=== PATIENT | female | born 1980 | race African-American/Black ===

== ENCOUNTER 2018-03-24 17:11 | Emergency (ER) | payer OTHER ==
--- NOTE | 2018-03-24 20:21 | PDOC ---
Attending Attestation - Resident Resident Name: Lisandra Vines - ED Attending Attestation I have performed the following: I have examined & evaluated the patient, The case was reviewed & discussed with the resident, I agree w/resident's findings & plan - HPI HPI: 03/24/18 20:19 Healthy 37-year-old female with history of ovarian cysts with LMP about 11 days ago presents now with 3 days of constant left pelvic pain that acutely exacerbated this morning around 11 AM, presents for evaluation. Patient has had her usual left pelvic discomfort, attributed to her previous diagnosis of ovulation pain. This morning had an acute exacerbation which radiated to her low back and left leg, lasted about an hour until she took ibuprofen, then returned to baseline level but with some residual pelvic discomfort. No bleeding or discharge, no urinary complaints, no associated GI complaints. No fevers or chills. - Physicial Exam PE: 03/24/18 20:20 Vital signs normal Urine pending Well-appearing and comfortable lying in stretcher talking on her cell phone Abdomen is soft and nondistended, tender in the left pelvis without guarding, there is some referred rebound to the left pelvis. No CVA tenderness. - Medical Decision Making 03/24/18 20:21 Healthy 37-year-old female with history of ovarian cysts about midcycle presents with acute left pelvic pain this morning, now improved. Presentation seems most consistent with cyst and rupture, rule out torsion. Rule out , rule out urinary etiology. Labs, urinalysis, urine Transvaginal ultrasound Feels comfortable now, reassess and disposition accordingly 03/24/18 23:45 labs, ua completely normal. Urine preg negative. Feels well, pain essentially resolved. US shows subcm b/l ovarian cysts, known fibroid, and some fluid but no large cyst or torsion. abd benign without guarding/rebound. presentation remains most consistent with small cyst rupture v. ovulation pain (resolved). no other evidence for GI or urinary pathology. pt agrees with d/c plan, feels much better and has state manager f/u. understands return criteria.
--- NOTE | 2018-03-24 20:24 | PDOC ---
History of Present Illness - General Chief Complaint: Pain Stated Complaint: PAIN - History of Present Illness Initial Comments: Daniela Wilson is a 37yo woman with a PMH of PCOS (per the patient) with a prior ruptured cyst who presents today with severe LLQ abdominal pain since eralier today. She reports that she had been having mild LLQ pain for several days and thought it was ovulation pain. However, this afternoon she had an abrupt and severe increase in her pain to a 10/10. She reports that the pain was also present in her back and proximal LLE in addition to the abdomen. She took some ibuprofen and the pain improved to a 6/10, which was bearable. She presented to the ED for evaluation. She states that she has been having mild lower abdominal pain for months, on and off, and previously reported it to her OB. She was told that it was ovulation pain, although the pain occurred throughout the month. She does report a history of irregular menstrual periods. Her most recent period ended about 10 days ago. Other than the abdominal pain this afternoon, Ms Wilson denies any associated symptoms. She has not had any nausea, vomiting, diarrhea, constipation, urinary symptoms, or vaginal discharge. She did have a yeast infection last week but reports that it has cleared up at this point. She has not had any fever, chills , or s/s of infection. Past History - Past Medical History Allergies/Adverse Reactions: Allergies Allergy/AdvReac Type Severity Reaction Status Date / Time No Known Allergies Allergy Verified 03/24/18 17:28 COPD: No - Surgical History Abdominal Surgery: Yes (HERNIA) - Suicide/Smoking/Psychosocial Hx Smoking History: Never smoked Review of Systems - Review of Systems Comments:: General: No fevers, no chills, no weight or appetite change, no malaise HEENT: No changes in vision, no changes in hearing, no congestion, no sore throat CV: No chest pain, no palpitations, no LE edema Pulm: No SOB, no cough, no wheezing GI: No nausea or vomiting, no change in bowel habits, no melena. See HPI : No frequency, no urgency, no dysuria Musc: No back pain, no joint swelling, no recent injury Skin: No rash, no lesions, no erythema Endo: No excessive thirst, no heat/cold intolerance Heme: No unusual bruising or bleeding, no swollen glands Neuro: No syncope, no numbness/tingling, no focal weakness Vasc: No claudication Psych: No recent change in mood, no SI or HI *Physical Exam - Vital Signs Last Vital Signs Temp Pulse Resp BP Pulse Ox 98 F 76 18 96/63 99 03/24/18 17:25 03/24/18 17:25 03/24/18 17:25 03/24/18 17:25 03/24/18 17:25 - Physical Exam Comments: General: Comfortable, no acute distress HEENT: PERRL, EOMI, MMM, voice normal, normal neck ROM, no LAD Cards: RRR, no murmur appreciated Pulm: Comfortable on room air, clear to auscultation bilaterally Abd: Soft, non-distended. TTP in LLQ. : No CVA tenderness Ext: Atraumatic. No LE edema. ROM intact. Strength 5/5 and equal bilaterally Vasc: Extremities WWP. Palpable radial and pedal pulses bilaterally Neuro: A&Ox3, CN grossly intact, normal speech, motor/sensory grossly intact and symmetric Psych: Mood appropriate to situation ED Treatment Course - LABORATORY CBC & Chemistry Diagram: 03/24/18 21:10 03/24/18 21:10 Medical Decision Making - Medical Decision Making Daniela Wilson is a 37yo woman with a PMH of PCOS and ruptured ovarian cyst who presents with acute onset of severe LLQ pain following several days of mild LLQ pain. - Symptoms most likely due to ruptured cyst. Ms Wilson has a history of ruptured cyst, and reports that this is similar - Unlikely to be an ectopic ; will check urine to r/o - UA to r/o UTI as cause of abdominal pain - CBC, CMP to evaluate for infection or intraabdominal abnormality, though given history and physical this is most likely related to pathology - Will order pelvic US - either or non- - once urine is returned 03/24/18 21:36 - CBC, chemistry, and UA normal. Urine preg negative - Pelvic US ordered to evaluate for cyst or fluid - Discussed with patient. If US confirms ovarian cyst or is consistent with recently ruptured cyst and if no other abnormalities are found, will discharge home. Ms Wilson agrees with this plan, pending results of US. Patient endorsed to Dr Wallis for additional management. Discussed with Dr Cortes. *DC/Admit/Observation/Transfer Diagnosis at time of Disposition: Ruptured ovarian cyst - Referrals Referrals: ON STAFF,NOT [Primary Care Provider] - Pushpa Marion MD [Staff Physician] - - Patient Instructions Printed Discharge Instructions: DI for Ovarian Cyst Additional Instructions: Discharge Instructions: - You were seen in the ED for left lower abdominal pain - You had normal blood tests and urine test, but an ultrasound showed that you likely had a ruptured ovarian cyst - Continue to use ibuprofen (Alive, Motrin) or acetaminophen (Tylenol) as directed for pain. Remember to take ibuprofen with food to prevent stomach upset , and do not take more than 4000mg of acetaminophen per day. If needed for pain control, you may alternate between acetaminophen and ibuprofen every 3-4 hours. - Consider using a heating pad to relieve pain - Follow up with gynecology within the next week. You have been referred to Dr Marion if you do not have a construction field engineer that you see regularly. - Seek immediate medical care if you have severe worsening of your abdominal pain, especially if you also feel lightheaded/dizzy, have fever to 101F, have copious vaginal bleeding, or you have nausea and vomiting that prevent you from eating or drinking. - Post Discharge Activity
[2018-03-24 21:08] LABS: URINE APPEARANCE SLCLOUDY; URINE BILIRUBIN NEGATIVE (<2.0 mg/dL); URINE COLOR YELLOW; URINE GLUCOSE (UA) NEGATIVE (NEGATIVE); URINE KETONE NEGATIVE (NEGATIVE); URINE LEUK ESTERASE NEGATIVE (NEGATIVE); URINE NITRITE NEGATIVE (NEGATIVE); URINE PROTEIN NEGATIVE (NEGATIVE); URINE UROBILINOGEN NEGATIVE mg/dL (0.2-1.0)
[2018-03-24 21:10] LABS: HCG,QUALITATIVE URINE Negative
[2018-03-24 21:22] LABS: BASO % 1.4 % (0-2.0); EOS % 1.3 % (0-4.5); HEMATOCRIT 37.8 % (32.4-45.2); HEMOGLOBIN 12.8 GM/dL (10.7-15.3); LYMPH % 44.2 % (8-40); MCH 30.4 pg (25.7-33.7); MCHC 33.7 g/dl (32.0-36.0); MEAN CELL VOLUME 90.3 fl (80-96); MONO % 5.9 % (3.8-10.2); NEUT % 47.2 % (42.8-82.8); PLATELET COUNT 302 K/MM3 (134-434); RBC 4.19 M/mm3 (3.60-5.2); RDW 12.4 % (11.6-15.6); WHITE BLOOD COUNT 3.9 K/mm3 (4.0-10.0)
[2018-03-24 21:40] LABS: ALK PHOS 56 U/L (45-117); ANION GAP 6 MMOL/L (8-16); BILIRUBIN,TOTAL 0.3 mg/dL (0.2-1.0); BLOOD UREA NITROGEN 15 mg/dL (7-18); CALCIUM 9.4 mg/dL (8.5-10.1); CHLORIDE 106 mmol/L (98-107); CO2 30 mmol/L (21-32); CREATININE 0.8 mg/dL (0.55-1.02); GLUCOSE,RANDOM 86 mg/dL (74-106); POTASSIUM 4.2 mmol/L (3.5-5.1); SGPT/ALT 19 U/L (12-78); SODIUM 142 mmol/L (136-145); TOT PROT 7.3 g/dl (6.4-8.2)
[2018-03-24 21:41] LABS: SGOT/AST 17 U/L (15-37)
--- NOTE | 2018-03-24 22:05 | PDOC ---
*Physical Exam - Vital Signs Last Vital Signs Temp Pulse Resp BP Pulse Ox 98 F 76 18 96/63 99 03/24/18 17:25 03/24/18 17:25 03/24/18 17:25 03/24/18 17:25 03/24/18 17:25 ED Treatment Course - LABORATORY CBC & Chemistry Diagram: 03/24/18 21:10 03/24/18 21:10 - ADDITIONAL ORDERS Additional order review: Laboratory Results 03/24/18 03/24/18 21:10 20:50 Sodium 142 Potassium 4.2 Chloride 106 Carbon Dioxide 30 Anion Gap 6 L BUN 15 Creatinine 0.8 Creat Clearance w eGFR > 60 Random Glucose 86 Calcium 9.4 Total Bilirubin 0.3 AST 17 ALT 19 Alkaline Phosphatase 56 Total Protein 7.3 Albumin 4.0 Urine Color Yellow Urine Appearance Slcloudy Urine pH 5.0 Ur Specific Bode 1.029 Urine Protein Negative Urine Glucose (UA) Negative Urine Ketones Negative Urine Blood Negative Urine Nitrite Negative Urine Bilirubin Negative Urine Urobilinogen Negative Ur Leukocyte Esterase Negative Urine HCG, Qual Negative 03/24/18 21:10 RBC 4.19 MCV 90.3 MCHC 33.7 RDW 12.4 MPV 9.0 Neutrophils % 47.2 Lymphocytes % 44.2 H Monocytes % 5.9 Eosinophils % 1.3 Basophils % 1.4 Medical Decision Making - Medical Decision Making 03/24/18 22:04 The patient is a 37F who presents with LLQ pain with several days of "ovulation pain" which acutely worsened. Labs WNL. UA negative including Upreg. Pending TVUS. 03/24/18 23:45 US shows 4cm calcified fibroid. Will d/c with COMPUTER SUPPORT TECHNICIAN f/u. *DC/Admit/Observation/Transfer Diagnosis at time of Disposition: Fibroid Qualifiers: Uterine leiomyoma location: unspecified location Qualified Code(s): D25.9 - Leiomyoma of uterus, unspecified - Discharge Dispostion Disposition: HOME Condition at time of disposition: Stable Decision to Admit order: No - Referrals Referrals: Pushpa Marion MD [Staff Physician] - ON STAFF,NOT [Primary Care Provider] - - Patient Instructions Printed Discharge Instructions: DI for Ovarian Cyst Additional Instructions: Discharge Instructions: - You were seen in the ED for left lower abdominal pain - You had normal blood tests and urine test, but an ultrasound showed that you likely had a ruptured ovarian cyst - Continue to use ibuprofen (Alive, Motrin) or acetaminophen (Tylenol) as directed for pain. Remember to take ibuprofen with food to prevent stomach upset , and do not take more than 4000mg of acetaminophen per day. If needed for pain control, you may alternate between acetaminophen and ibuprofen every 3-4 hours. - Consider using a heating pad to relieve pain - Follow up with gynecology within the next week. You have been referred to Dr Marion if you do not have a welt trimming machine operator that you see regularly. - Seek immediate medical care if you have severe worsening of your abdominal pain, especially if you also feel lightheaded/dizzy, have fever to 101F, have copious vaginal bleeding, or you have nausea and vomiting that prevent you from eating or drinking. - Post Discharge Activity
[2018-03-24 22:07] LABS: PLATELET ESTIMATE ADEQUATE
[2018-03-24 23:11] VITALS: BP 99/63; PULSE 75; TEMP 98.3
== END 2018-03-25 00:15 | disposition home or self-care (01) ==
LOC: JER 17:11
DX: N83.202 Unspecified ovarian cyst, left side (principal)
CPT/HCPCS: 36415; 76830-TC; 80053; 81003; 84703; 85025; 99282-25